=== PATIENT | male | born 1995 | race Caucasian/White ===

== ENCOUNTER 2019-02-18 12:23 | Emergency (ER) | payer MEDICAID, OTHER ==
[~2019-02-18] VITALS: Ht 185.4 cm; Wt 96.8 kg
[2019-02-18 13:43] VITALS: BP 105/86
== END 2019-02-18 13:46 | disposition home or self-care (01) ==
LOC: ER 12:23
DX: R55 Syncope and collapse (principal); F12.90 Cannabis use, unspecified, uncomplicated
CPT/HCPCS: 93005; 99284

== ENCOUNTER 2020-04-08 11:38 | Emergency (ER) | payer BC ==
[~2020-04-08] VITALS: Ht 185.4 cm; Wt 92.0 kg
[2020-04-08 11:43] VITALS: BP 106/62
== END 2020-04-08 12:37 | disposition home or self-care (01) ==
LOC: ER 11:38
DX: S61.412D Laceration without foreign body of left hand, subsequent encounter (principal); F12.90 Cannabis use, unspecified, uncomplicated; W26.0XXD Contact with knife, subsequent encounter
CPT/HCPCS: 99281